=== PATIENT | male | born 1970 | race Caucasian/White ===

== ENCOUNTER 2018-08-24 13:21 | Inpatient (IN) | payer BC ==
[~2018-08-24] VITALS: Ht 165.1 cm; Wt 96.5 kg
[2018-08-24] VITALS (17 sets, daily range): BP systolic 96–134; BP diastolic 54–86; BMI 36.6
--- NOTE | ~2018-08-24 | HEMODYNAMI ---
PATIENT:VLADIMIR SUAREZ MEDICAL RECORD: [id number] : 70 LOCATION:[facility] ADMISSION DATE: 08/24/18 Generatedon:08/24/201814:34 Patient name: VLADIMIR SUAREZ Patient #: [id number] SSN: : 1970 Date of study: 08/24/2018 Page: Of Hemodynamic Procedure Report Patient Data Patient Demographics Procedure consent was obtained First Name: VLADIMIR Gender: Male Last Name: DANIELA : 1970 Middle Initial: G Age: 48 year(s) Patient #: [id number] Race: Unknown Additional ID: [id number] Contact details Address: [address] State: [place] City: [place] Zip code: [address] Past Medical History Allergies: No known allergies Admission Admission Data Admission Date: 08/24/2018 Admission Time: 13:21 Admit Source: Emergency department Procedure Procedure Types Cath Procedure Diagnostic Procedure LHC LHC w/Coronaries w/Grafts PCI Procedure AMI/SVG/CLERK SECRETARY PTCA or Stent AMI-BMS/LINA Initial Procedure Description Procedure Date Procedure Date: 08/24/2018 Procedure Start Time: 13:54 Procedure End Time: 14:29 Procedure Staff Name Function Cristi Vera MD Performing Physician Jakob Bautista RT Monitor Vishnu Novak RN Nurse Ember Rodney RT Scrub Sander Huynh RT Electronic Technologist Procedure Data Cath Procedure Fluoroscopy Diagnostic fluoroscopy Total fluoroscopy Time: time: 12.4 min 12.4 min Diagnostic fluoroscopy Total fluoroscopy dose: dose: 2003 mGy 2003 mGy Contrast Material Contrast Material Type Amount (ml) Isovue 300 144 Entry Location Entry Primary Successful Side Size Upsize Upsize Entry Closure Succes sful Closure Location (Fr) 1 (Fr) 2 (Fr) Remarks Device Remarks Femoral Right 6 Fr Exoseal artery Short Diagnostic catheters Device Type Used For End Catheter Placement MULTIPACK JL 4.0 5Fr Left Coronary catheter Angiography MULTIPACK 3DRC 5Fr Right Coronary catheter Angiography MULTIPACK Pigtail 5 Fr LV Angiography catheter Procedure Complications No complications Procedure Medications Medication Administration Route Dosage 0.9% NaCl I.V. ml/hr Oxygen etCO2 Nasal cannula 2 l/min Heparin Flush Bag added to field 2 bags (1000units/500ml NS) Lidocaine 2% added to field 20 Versed I.V. 1 mg Fentanyl I.V. 50 mcg Integrilin (Bolus I.V. 9 ml 2mg/ml) Integrilin (Bolus wasted 1 ml 2mg/ml) Integrilin Drip I.V. drip 15.7 ml/hr (75mg/100ml) Integrilin (Bolus I.C. 9 ml 2mg/ml) Plavix P.O. 600 mg Hemodynamics Rest Heart Rate: 92 (bpm) Pressure Samples Time Site Value (mmHg) Purpose Heart Use Rate(bpm) 14:22 LV 97/26,26 EDP 78 Gradients Valve Time Site Site Mean SEP/DFP Peak To Heart Use 1 2 (mmHg) (sec/min) Peak Rate (mmHg) (bpm) Aortic 14:23 LV AO 67 Snapshots Pre Cath Intra NCS Post Cath Vital Signs Time Heart Resp SPO2 etCO2 NIBP (mmHg) Rhythm Pain Status Sedation Rate (ipm) (%) (mmHg) Level (bpm) 13:47:49 83 17 96 32.2 128/81(98) NSR 3 (11) , 10(A) Tolerable 13:52:03 106 26 93 31.4 123/88(99) NSR 3 (11) , 10(A) Tolerable 13:56:27 80 22 92 34.4 114/64(82) NSR 0 (11) , No 9(A) pain 14:00:41 65 23 93 29.9 120/78(106) NSR 0 (11) , No 9(A) pain 14:04:57 95 21 95 35.9 127/83(95) NSR 0 (11) , No 9(A) pain 14:09:15 62 21 98 30.7 132/84(107) NSR 3 (11) , 10(A) Tolerable 14:13:33 63 22 99 35.2 96/78(86) NSR 4 (11) , 10(A) Distressing 14:17:05 65 25 96 26.9 96/78(86) NSR 4 (11) , 10(A) Distressing 14:21:23 64 22 98 29.2 114/76(89) NSR 4 (11) , 10(A) Distressing 14:25:39 74 19 97 104/68(84) NSR 4 (11) , 10(A) Distressing 14:29:49 68 25 96 11.2 113/76(84) NSR 4 (11) , 10(A) Distressing Medications Time Medication Route Dose Verified Delivered Reason Notes E ffectiveness by by 13:49:06 0.9% NaCl I.V. ml/hr Vishnu Vishnu Per Scarlet Novak physician RN RN 13:49:37 Oxygen etCO2 2 Vishnu Vishnu for low 02 Nasal l/min Scarlet Novak sats cannula RN RN 13:49:48 Heparin Flush added 2 Vishnu Vishnu used for Bag to bags Scarlet Novak procedure (1000units/500ml field RN RN NS) 13:50:00 Lidocaine 2% added 20ml Vishnu Vishnu for local to vial Scarlet Novak anesthetic field RN RN 13:53:43 Versed I.V. 1 mg Vishnu Vishnu for sedation Scarlet Novak RN RN 13:53:51 Fentanyl I.V. 50 Vishnu Vishnu for sedation mcg Scarlet Novak RN RN 13:57:15 Integrilin I.V. 9 ml Vishnu Vishnu for (Bolus 2mg/ml) Scarlet Novak antiplatelet RN RN therapy 13:57:23 Integrilin wasted 1ml Vishnu Vishnu to sharp's (Bolus 2mg/ml) Scarlet Novak RN RN 14:00:14 Integrilin Drip I.V. 15.7 Vishnu Vishnu for (75mg/100ml) drip ml/hr Scarlet Novak antiplatelet RN RN therapy 14:12:34 Integrilin I.C. 9 ml Vishnu Cristi for (Bolus 2mg/ml) Scarlet Vera antiplatelet BRET PATTERSON therapy 14:29:24 Plavix P.O. 600 Vishnu Laceyory for mg Scarlet Vera antiplatelet BRET PATTERSON therapy Procedure Log Time Note 13:34:47 Procedure type changed to Cath procedure, Diagnostic procedure, LHC, LHC w/Coronaries w/Grafts, PCI procedure, AMI/SVG/CLERK SECRETARY PTCA or Stent, AMI-BMS/LINA Initial 13:34:52 Admit Source: Emergency department 13:35:23 Diagnostic Cath status Emergency 13:35:26 Sander Lino RT(R) (CV) sent for patient. Start room use. 13:35:27 Time tracking: Regular hours (M-F 7:00 - 5:00) 13:35:32 Plan of Care:Hemodynamics will remain stable., Cardiac rhythm will remain stable., Comfort level will be maintained., Respiratory function will remain adequate., Patient/ family verbilizes understanding of procedure., Procedure tolerated without complication., Recovers from procedure without complications.. 13:43:50 Patient received from ED to CCL 2 Alert and oriented. Tansferred to table in Supine position. 13:43:51 Warm blankets applied, and rosario hugger turned on for patient comfort. 13:43:52 Correct patient and procedure confirmed by team. 13:43:54 Signed procedure consent form obtained from patient. 13:43:55 ECG and BP/O2 sat monitors applied to patient. 13:43:57 Pre-procedure instructions explained to patient. 13:43:57 Pre-op teaching completed and patient verbalized understanding. 13:44:06 Family unavailable. 13:44:37 Patient allergic to No known allergies 13:44:39 Is patient on blood thinner?No 13:44:41 Patient diabetic? Yes. 13:44:44 Previous problem with sedation/anesthesia? No ? 13:44:45 Snore? Yes 13:44:47 Sleep apnea? Yes 13:44:48 Deviated septum? No 13:44:49 Opens mouth fully? Yes 13:44:49 Sticks out tongue? Yes 13:44:51 Airway obstruction? No ? 13:45:01 If diabetic: On Metformin? Yes 13:45:03 If on Metformin: Last Dose? 08/23/2018 13:45:19 WAS TOLD TO HOLD METFORMIN 2 DAYS 13:45:25 Dentures? No ? 13:45:39 IV patent on arrival in right hand with 0.9% NaCl at [facility] 13:45:50 Right groin area was prepped with chlora-prep and draped in sterile fashion 13:45:51 Alarms reviewed by R. N. 13:45:51 Sharps counted by scrub and verified by R.N. 13:45:58 Use device set Femoral Dx 13:46:00 ACIST Syringe (46507) opened to sterile field. 13:46:01 Bag Decanter (2001S) opened to sterile field. 13:46:01 ACIST Hand Control (86694) opened to sterile field. 13:46:02 ACIST Manifold (41110) opened to sterile field. 13:46:02 Tegaderm 4 x 4 (1626W) opened to sterile field. 13:46:04 Medline Cath Pack ([id number]) opened to sterile field. 13:46:04 DIAGNOSTIC WIRE .035 260cm J wire (124763) opened to sterile field. 13:46:06 DIAGNOSTIC Multipack 5Fr catheter set (EL1053) opened to sterile field. 13:46:23 SHEATH 6FR [place] (HPP349) opened to sterile field. 13:46:24 WHISPER 300cm guide wire ([id number]) opened to sterile field. 13:46:28 INFLATOR Merit BasixCompak (EL9335) opened to sterile field. 13:46:43 Vital chart was started 13:46:45 Baseline sample Acquired. 13:46:48 Rhythm: sinus rhythm 13:46:49 Full Disclosure recording started 13:46:53 H&P Date Dictated: 08/24/2018 ER History on chart.. 13:49:06 0.9% NaCl ml/hr I.V. was administered by Vishnu Novak RN; Per physician; 13:49:37 Oxygen 2 l/min etCO2 Nasal cannula was administered by Vishnu Novak RN; for low 02 sats; 13:49:48 Heparin Flush Bag (1000units/500ml NS) 2 bags added to field was administered by Vishnu Novak RN; used for procedure; 13:50:00 Lidocaine 2% 20ml vial added to field was administered by Vishnu Novak RN; for local anesthetic; 13:51:56 Zero performed for pressure channel P1 13:53:01 Pre procedure: right dorsailis pedis pulse 2+ Normal; easily identifiable; not easily obliterated 13:53:06 Patient pain scale 0/10 ?. 13:53:08 Patient pain scale 3/10 CP. 13:53:12 Physician arrived 13:53:13 --------ALL STOP TIME OUT------ 13:53:13 Final Timeout: patient, procedure, and site verified with staff and physician. All members of the team are in agreement. 13:53:15 Right groin site verified by team. 13:53:20 Maximum allowable Isovue 300 dose 300ml. Physician notified. (300ml for normal creatinines. For patients with creatinine of 1.7 or higher multiply weight(kg) x 5 divided by creatinine.) 13:53:25 Fire Safety Assessment: A--An alcohol-based skin anteseptic being used preoperatively., C--Open oxygen or nitrous oxide is being used., D--An ESU, laser, or fiber-optic light is being used. 13:53:28 Physical assessment completed. ASA score P 2 - A patient with mild systemic disease as per Cristi Vera MD. 13:53:32 Sedation plan: IV Moderate Sedation Medication:Versed, Fentanyl 13:53:43 Versed 1 mg I.V. was administered by Vishnu Novak RN; for sedation; 13:53:51 Fentanyl 50 mcg I.V. was administered by Vishnu Novak RN; for sedation; 13:54:28 Procedure started. 13:54:36 Local anesthetic to right femoral artery with Lidocaine 2% by Cristi Vera MD.INITIAL ACCESS ONLY 13:54:42 A 6 Fr Short sheath was inserted into the Right Femoral artery 13:54:56 GUIDE 6FR XBLAD 3.5 catheter ([id number]) opened to sterile field. 13:55:44 Zero performed for pressure channel P1 13:56:48 A MULTIPACK JL 4.0 5Fr catheter was advanced over the wire and used for Left Coronary Angiography. 13:56:54 LCA angiography performed. 13:56:55 Catheter removed. 13:57:02 6 Fr XBLAD 3.5 guide catheter was inserted over the wire 13:57:15 Integrilin (Bolus 2mg/ml) 9 ml I.V. was administered by Vishnu Novak RN; for antiplatelet therapy; 13:57:19 WHISPER wire advanced. 13:57:23 Integrilin (Bolus 2mg/ml) 1ml wasted was administered by Vishnu Novak RN; to sharp's; 14:00:14 Integrilin Drip (75mg/100ml) 15.7 ml/hr I.V. drip was administered by Vishnu Novak RN; for antiplatelet therapy; 14:02:04 BMW 300cm Girdler 2 J wire ([id number]) opened to sterile field. 14:02:20 Wire removed. 14:02:30 BMW 2 wire advanced. 14:05:26 Inflate balloon Inflation number: 1 A EMERGE OTW 2.5 x 15 balloon ([id number]) was prepped and advanced across the Mid LAD, then inflated to 7 ULISES for 0:28 (min:sec). 14:05:42 Inflation number: 2 The EMERGE OTW 2.5 x 15 balloon ([id number]) was reinflated across the Mid LAD, to 7 ULISES for 0:12 (min:sec). 14:06:36 Inflation number: 3 The EMERGE OTW 2.5 x 15 balloon ([id number]) was reinflated across the Mid LAD, to 7 ULISES for 0:16 (min:sec). 14:06:43 Inflation number: 4 The EMERGE OTW 2.5 x 15 balloon ([id number]) was reinflated across the Mid LAD, to 4 ULISES for 0:05 (min:sec). 14:07:31 Inflation number: 5 The EMERGE OTW 2.5 x 15 balloon ([id number]) was reinflated across the Mid LAD, to 7 ULISES for 0:12 (min:sec). 14:08:17 Balloon removed over the wire. 14:11:19 Place stent Inflation Number: 6 A COBRA RX 3.5 X 30 Stent was prepped and advanced across the Mid LAD. The stent was deployed at 14 ULISES for 0:25 (min:sec). 14:11:41 Stent catheter was removed intact over wire. 14:12:34 Integrilin (Bolus 2mg/ml) 9 ml I.C. was administered by rCisti Vera MD; for antiplatelet therapy; 14:16:03 Place stent Inflation Number: 7 A INTEGRITY RX 3.5 x 30 stent ([id number]) was prepped and advanced across the Mid LAD. The stent was deployed at 14 ULISES for 0:38 (min:sec). 14:17:20 Inflation number: 8 The stent balloon was then re-inflated across the Mid LAD to 4 ULISES for 0:12 (min:sec). 14:17:43 Inflation number: 9 The stent balloon was then re-inflated across the Mid LAD to 4 ULISES for 0:16 (min:sec). 14:18:10 Inflation number: 10 The stent balloon was then re-inflated across the Mid LAD to 6 ULISES for 0:09 (min:sec). 14:19:28 Stent catheter was removed intact over wire. 14:19:29 Wire removed. 14:19:30 Guide catheter removed. 14:19:37 A MULTIPACK 3DRC 5Fr catheter was advanced over the wire and used for Right Coronary Angiography. 14:19:43 RCA angiography performed. 14:21:19 Catheter removed. 14:22:18 A MULTIPACK Pigtail 5 Fr catheter was advanced over the wire and used for LV Angiography. 14:22:24 LV angiography performed. 14:22:28 LV gram done using PATIÑO 14:22:48 EF : 45 % 14:22:54 Catheter removed. 14:24:21 Sheath removed intact; hemostasis achieved with Exoseal to the Right Femoral artery. 14:24:23 Procedure ended.(Physican Out) 14:28:36 Fluoroscopy time 12.40 minutes. 14::44 Fluoroscopy dose: 2003 mGy 14::44 Flurop Dose total: 2003 14:29:03 Contrast amount:Isovue 300 144ml. 14:29:06 Sharps counted by scrub and verified by R.N. 14:29:07 Insertion/operative site no bleeding no hematoma. 14:29:09 Post-op/insertion site Right Femoral artery dressed using a 4 x 4 and Tegaderm. 14:29:13 Post right femoral artery:stable 14:29:14 Post Procedure Pulses reassessed and unchanged 14:29:17 Post procedure: right dorsailis pedis pulse 2+ Normal; easily identifiable; not easily obliterated. 14:29:20 Post procedure rhythm: sinus rhythm 14:29:22 Post procedure instruction explained to patient.Patient verbalizes understanding. 14:29:23 Procedure and supply charges have been captured, reviewed, submitted and are correct. 14:29:24 Plavix 600 mg P.O. was administered by Cristi Vera MD; for antiplatelet therapy; 14:29:40 EXOSEAL 6Fr (EX600) opened to sterile field. 14:29:47 Procedure Complication : No complications 14:29:50 Vital chart was stopped 14::50 See physician's report for complete and final results. 14:29:54 Report given to CVICU. 14:29:57 Patient transfered to CVICU with Bed. 14:29:59 Procedure ended. 14:29:59 Full Disclosure recording stopped 14:30:12 ACC-PCI Only Patient was given prescriptions, or instructed by Cristi Vera MD to start/continue the following medications upon discharge: Plavix 14:30:14 End room use (Document Last) Intervention Summary Intervention Notes Time ActionType Lesion and Equipment Action# Pressure Duration Attributes Used 14:05:26 Inflate Mid LAD EMERGE OTW 1 7 00:28 balloon 2.5 x 15 balloon ([id number]) 14:05:42 Reinflate Mid LAD EMERGE OTW 2 7 00:13 balloon 2.5 x 15 balloon ([id number]) 14:06:36 Reinflate Mid LAD EMERGE OTW 3 7 00:16 balloon 2.5 x 15 balloon ([id number]) 14:06:43 Reinflate Mid LAD EMERGE OTW 4 4 00:06 balloon 2.5 x 15 balloon ([id number]) 14:07:31 Reinflate Mid LAD EMERGE OTW 5 7 00:12 balloon 2.5 x 15 balloon ([id number]) 14:11:19 Place stent Mid LAD COBRA RX 3.5 6 14 00:25 X 30 Stent 14:16:03 Place stent Mid LAD INTEGRITY RX 7 14 00:38 3.5 x 30 stent ([id number]) 14:17:20 Reinflate Mid LAD INTEGRITY RX 8 4 00:12 stent 3.5 x 30 balloon stent ([id number]) 14:17:43 Reinflate Mid LAD INTEGRITY RX 9 4 00:16 stent 3.5 x 30 balloon stent ([id number]) 14:18:10 Reinflate Mid LAD INTEGRITY RX 10 6 00:09 stent 3.5 x 30 balloon stent ([id number]) Device Usage Item Name Manufacture Quantity Catalog Number [facility] [employer] Minimal Lot# / Charge Number Stock Stock Serial# Code ACIST Syringe Acist 1 05945 462938 023982 777138 20 (62722) Medical Systems Inc Bag Decanter Microtek 1 715713 75663 863334 5 () Medical Inc. ACIST Hand Acist 1 01192 845089 796084 921643 5 Control Medical (39655) [employer]ets [employer] Inc ACIST Manifold Acist 1 20990 660408 501486 904737 5 (39685) Medical Systems Inc Tegaderm 4 x 4 3M 1 1626W 234689 717305 585696 5 (1626W) Medline Cath Medline 1 [id number] 043062 74168 625304 5 Pack ([id number]) DIAGNOSTIC [place] 1 096896 023110 731394 871300 30 WIRE .035 260cm J wire (271524) DIAGNOSTIC Cardinal 1 ZI1894 151141 01103 174362 30 Multipack 5Fr Health catheter set (IQ8004) SHEATH 6FR Terumo 1 XIC853 986141 557758 628993 40 [place] (VKW595) WHISPER 300cm Sands 1 [id number] 477546 479908 882277 5 guide wire Vascular (3966018IQ) INFLATOR Merit Merit 1 ZU3368 631922 827972 914845 15 BlackSquare Medical (BS6609) GUIDE 6FR Cardinal 1 61359161 508390 132875 957013 10 XBLAD 3.5 Health catheter ([id number]) MULTIPACK JL Cardinal 1 089558 5 4.0 5Fr Health catheter BMW 300cm Sands 1 [id number] 129267 321772 991395 5 Girdler 2 J Vascular wire ([id number]) EMERGE OTW 2.5 [place] 1 [id number] 000752 113751 357841 5 [id number] x 15 balloon Scientific ([id number]) COBRA RX 3.5 X Celonova 1 675-64-92738 796713 788849901 222070 7 5 [id number] 30 stent Biosciences ([id number]) INTEGRITY RX Medtronic 1 [id number] 280838 057282 586356 5 [id number] 3.5 x 30 stent ([id number]) MULTIPACK 3DRC Cardinal 1 418582 5 5Fr catheter Health MULTIPACK Cardinal 1 267756 5 Pigtail 5 Fr Health catheter EXOSEAL 6Fr Cardinal 1 EX600 044757 751004 856850 10 (EX600) Health Signature Audit [place] Stage Time Signature Unsigned Intra-Procedure 08/24/2018 Jakob JETT(R) 2:34:13 PM Signatures Monitor : Jakob Bautista RT Signature : Date : Time : [address] [place] [address]
[2018-08-24 13:39] LABS: HEMATOCRIT 46.5 % (42.0-54.0); HEMOGLOBIN 17.1 g/dL (13.5-17.5); MCH 31.2 pg (26.0-34.0); MCHC 36.8 g/dL (31.0-37.0); MCV 84.9 fL (80.0-100.0); MEAN PLATELET VOLUME 10.1 fL (7.4-10.4); PLATELET COUNT 276 10x3/uL (130-400); RBC 5.48 10x6/uL (4.20-6.10); RDW 13.1 % (11.5-14.5); WBC 21.6 10x3/uL (4.8-10.8)
[2018-08-24 13:51] LABS: ALBUMIN 3.7 g/dL (3.4-5.0); ALKALINE PHOSPHATASE 100 U/L (46-116); ALT (SGPT) 48 U/L (10-68); BILIRUBIN - TOTAL 1.15 mg/dL (0.2-1.3); CALC OSMOLALITY 287 mosm/kg (275-300); CALCIUM 8.7 mg/dL (8.5-10.1); CARBON DIOXIDE 24.1 mmol/L (21.0-32.0); CHLORIDE - SERUM 103 mmol/L (98-107); GLUCOSE 279 mg/dL (74-106); POTASSIUM - SERUM 4.5 mmol/L (3.5-5.1); PROTEIN - SERUM 6.8 g/dL (6.4-8.2); SODIUM 139 mmol/L (136-145); UREA NITROGEN 13 mg/dL (7-18); eGFR NON AFRICAN AMERICAN 85 mL/min (90-120)
--- NOTE | 2018-08-24 13:51 | NUR ---
Dr. 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
[2018-08-24 14:07] LABS: CKMB 8.6 U/L (0.0-3.6); CREATINE KINASE 177 UL (21-232); MAGNESIUM - SERUM 1.9 mg/dL (1.8-2.4)
[2018-08-24 14:09] LABS: TROPONIN-I 1.136 ng/mL (0.000-0.060)
[2018-08-24 14:19] LABS: INR 1.04 (0.85-1.17); PROTIME 13.1 SECONDS (11.6-15.0)
[2018-08-24 15:15] LABS: LYMPHOCYTES 19 % (15-50); MONOCYTES 4 % (2-11); NEUTROPHILS 77 % (40-80)
[2018-08-24 15:16] LABS: PLATELET ESTIMATE NORMAL
--- NOTE | 2018-08-24 16:41 | NUR ---
PT BLOOD GLUCOSE CHECKED. IS VERY SLEEPY AND HAS TO BE REMINDED CONSTANTLY TO KEEP HIS LEG STRAIGHT. CONTINUES TO FLOP AROUND IN BED. SITE REMAINS SOFT WITH NO HEMATOMA DETECTED. DRESSING C,D,I.
--- NOTE | 2018-08-24 17:27 | NUR ---
CO-WORKER ARUNA NIELSON CAME BY TO VIST PATIENT. BROUGHT PATIENT'S WALLET. HAD LARGE AMOUNT OF MAYBERRY IN THE WALLET. ARUNA REMOVED $800 IN MAYBERRY WITH PATIENT CONSENT TO KEEP ON HIS PERSON. THE REMAINING MAYBERRY AND CARDS WILL BE ITEMIZED AND SENT TO THE [facility] UNTIL DISCHARGE.
--- NOTE | 2018-08-24 17:58 | NUR ---
FRIEND: ARUNA NIELSON [phone], ROVING SIZER: ZULEYMA DOSS [phone] MOM: MUNA SUAREZ [phone]
[2018-08-24] MEDS ORDERED: GLUCOPHAGE1000 MG PO (18:16)
[2018-08-24] MEDS ORDERED: GLIPIZIDE10 MG PO (18:17)
--- NOTE | 2018-08-24 18:18 | NUR ---
PT USES [facility] IN [place]. PHARMACY NOT IN [facility] LIST. MEDICATION LIST UPDATED FOR PT HOME MEDICATIONS.
--- NOTE | 2018-08-24 19:30 | NUR ---
REPORT REC'D AND CARE ASSUMED, REC'D PT RESTING QUIETLY IN BED, AWAKE, ALERT, AND ORIENTED, RIGHT A/C PIV WITH NS INFUSING AND INTERGRILIN @ 15.7CC/HR INFUSING, RIGHT GROIN SITE POST CATH CDI, NO BLEEDING OR HEMATOMA, PT DENIES PAIN, BED IN LOW POSITION, CALL LIGHT IN REACH, VISIBLE TO NURSES STATION.
--- NOTE | 2018-08-24 19:30 | NUR ---
REPORT REC'D AND CARE ASSUMED, REC'D PT AWAKE, ALERT, AND ORIENTED X 4 ON ROOM AIR, RIGHT RADIAL JIMMY WITH FLEXION BOARD IN USE, LEVELED AND ZEROED WITH RETURN OF APPROPRIATE WAVEFORM, LEFT UPPER LATERAL CHEST INCISION DRSG CDI, LEFT MIDDLE LATERAL DRG CDI TO CT'S X 2 TO 20CM H2O SUCTION, SM AIR LEAK NOTED MD AWARE, LEFT POSTERIOR BACK DRSG CDI, CRITICORE ESPINOZA PATENT DRAINING CLEAR YELLOW URINE, EPIDURAL TAPED SECURELY TO BACK INFUSING @ 7CC/HR WITH 4CC Q15MIN BOLUS AVAILABLE FOR BREAK THROUGH PAIN, BILAT TEDS AND SCDS, PPP, AIR OVERLAY MATTRESS IN USE, PT DENIES PAIN, SR UP X 2, CALL LIGHT IN REACH, VISIBL TO NURSES STATION.
--- NOTE | 2018-08-24 19:44 | NUR ---
CALLED DR GUZMÁN. PT DID NOT HAVE ORDERS FOR PLAVIX FOR TOMORROW. NEW ORDERS RECEIVED.
--- NOTE | 2018-08-24 20:00 | NUR ---
PT REQUESTING SOMETHING TO EAT, CHICKEN BROTH AND JELLO PROVIDED, PT DENIES NAUSEA.
--- NOTE | 2018-08-24 20:00 | NUR ---
ER STAFF UP TO VERIFY AND LOG PT BELONGINGS TO GO INTO [facility]. PT HAS DECIDED TO KEEP HIS CELL PHONE AT HIS BEDSIDE.
--- NOTE | 2018-08-24 20:30 | NUR ---
NO VISITORS IN AT THIS TIME.
--- NOTE | 2018-08-24 21:00 | NUR ---
FSBS 225, PHARMACY NOTIFIED OF NEED FOR HUMULIN REGULAR INSULIN, RIGHT A/C PIV SALINE LOCKED AND NS @ 125CC/HR PLACED TO LEFT HAND, PT FORGETTING TO KEEP RIGHT ARM STRAIGHT.
--- NOTE | 2018-08-24 21:15 | NUR ---
MOTHER AND UNCLE AT BS, UPDATE PROVIDED AND QUESTIONS ANSWERED, PT SITTING UP IN BED VISITING WITH FAMILY, PT DENIES NEEDS.
--- NOTE | 2018-08-24 22:30 | NUR ---
PT PULLING O2 SAT OFF WHILE SLEEPING, O2 SAT DECREASES 86%, O2 REAPPLIED AND IMPORTANCE OF KEEPING IT ON DISCUSSED WITH PATIENT, PT STATES "OKAY", WILL MONITOR CLOSELY FOR CHANGES.
--- NOTE | 2018-08-24 23:15 | NUR ---
REASSESSMENT COMPLETED, RT AT BS FOR BREATHING TX, ID BAND REPLACED, PT RATING PAIN "2" ON 0-10 PAIN SCALE, COLA PROVIDED ON REQUEST, PT PULLING 500-750 ON IS, PT DENIES FURTHER NEEDS, WILL CONTINUE TO MONITOR FOR CHANGES.
--- NOTE | 2018-08-24 23:30 | NUR ---
REASSESSMENT COMPLETED, PT RESTLESS IN BED, REPOSITIONS FREQUENTLY, PULLING O2 AND PULSE OX OFF, O2 SAT DECREASES TO 85% WITH O2 OFF, EXPLAINED TO PATIENT WHY OXYGEN WAS IMPORTANT AT THIS TIME, PT NODS IN UNDERSTANDING, ASKED WHY PATIENT WAS SO RESTLESS, STATES " I JUST CAN'T GET COMFY", ASSISTED PT TO REPOSITION, BP STABLE, WILL MONITOR CLOSELY FOR CHANGES.
[2018-08-25] VITALS (24 sets, daily range): BP systolic 110–134; BP diastolic 44–90; Ht 165.1 cm; Wt 96.5 kg
--- NOTE | 2018-08-25 02:00 | NUR ---
PT STANDING AT SIDE OF BED VOIDING, TELEMETRY PADS, BP CUFF, AND OXYGEN REAPPLIED TO PT, PT CAUTIONED REGARDING GETTING UP WITHOUT ASSISTANCE, PT BACK TO BED WITH MONITOR CONNECTED, PT REMINDED TO KEEP MONITORING EQUIPMENT ON, VERBALIZES UNDERSTANDING, REMAINS VISIBLE TO NURSES STATION.
--- NOTE | 2018-08-25 03:16 | NUR ---
REASSESSMENT COMPLETED, PARTIAL LINEN CHANGE PROVIDED, PT REPOSITIONED SELF UP IN BED, OXYGEN REAPPLIED, PT CONTINUES TO PULL IT OFF, PT DENIES PAIN , RIGHT GROIN DRSG CDI, NO BLEEDING OR HEMATOMA NOTED, PT DENIES PAIN OR NEEDS
--- NOTE | 2018-08-25 05:00 | NUR ---
PT RESTING ON LEFT SIDE, EYES CLOSED, O2 SAT 95%, O2 REMAINS AT 6 LITERS VIA NC, WILL MONITOR CLOSELY FOR CHANGES.
--- NOTE | 2018-08-25 06:00 | NUR ---
LAB AT BS FOR AM LAB, PT SITTING UP IN BED TALKING ON CELL PHONE, SR UP X 2, CALL LIGHT IN REACH, VISIBLE TO NURSES STATION.
[2018-08-25 06:22] LABS: BASOPHILS 0.1 % (0-2); EOSINOPHILS 0.5 % (0-7); HEMATOCRIT 45.8 % (42.0-54.0); HEMOGLOBIN 16.2 g/dL (13.5-17.5); IMMATURE GRANULOCYTES 0.5 % (0-5); LYMPHOCYTES 20.9 % (15-50); MCH 30.6 pg (26.0-34.0); MCHC 35.4 g/dL (31.0-37.0); MCV 86.6 fL (80.0-100.0); MEAN PLATELET VOLUME 10.2 fL (7.4-10.4); MONOCYTES 8.2 % (2-11); NEUTROPHILS 69.8 % (40-80); PLATELET COUNT 255 10x3/uL (130-400); RBC 5.29 10x6/uL (4.20-6.10); RDW 13.4 % (11.5-14.5); WBC 21.7 10x3/uL (4.8-10.8)
[2018-08-25 06:30] LABS: ALBUMIN 3.3 g/dL (3.4-5.0); ALKALINE PHOSPHATASE 84 U/L (46-116); ALT (SGPT) 92 U/L (10-68); BILIRUBIN - TOTAL 1.48 mg/dL (0.2-1.3); CALC OSMOLALITY 278 mosm/kg (275-300); CALCIUM 8.2 mg/dL (8.5-10.1); CARBON DIOXIDE 22.4 mmol/L (21.0-32.0); CHLORIDE - SERUM 104 mmol/L (98-107); CREATININE - SERUM 0.8 mg/dL (0.6-1.3); GLUCOSE 182 mg/dL (74-106); PROTEIN - SERUM 6.3 g/dL (6.4-8.2); SODIUM 137 mmol/L (136-145); UREA NITROGEN 13 mg/dL (7-18); eGFR NON AFRICAN AMERICAN > 90 mL/min (90-120)
--- NOTE | 2018-08-25 17:33 | NUR ---
0730-SOB AND CONTINUED CHEST DISCOMFORT-NO CHG BATH AT THIS TIME-REASSESS PM SHIFT
--- NOTE | 2018-08-25 17:47 | NUR ---
1200-DR BORJA AT [facility]-SPOKE WITH PT REGARDING PLAN OF CARE-PT APPEARED TO COMPREHEND-R GROIN SOFT TO TOUCH-R AC IV D/C'D WITH TIP INTACT-L IV SALINE LOCED
--- NOTE | 2018-08-25 19:20 | NUR ---
REC'D PT STANDING AT BS, O2 OFF, O2 @ 5LITERS VIA HIGH FLOW CANNULA REAPPLIED, O2 SAT 96%, CM-ST @ 122, BP STABLE, PT STATES " I WAS UP USING THE BATHROOM", LEFT HAND PIV SALINE LOCKED, DRSG TO RIGHT GROIN CDI, NO BLEEDING OR HEMATOMA, PPP, DINNER TRAY REMOVED, PT CONSUMED APPROX. 85%, PT DENIES PAIN OR NEEDS, CALL LIGHT IN REACH.
--- NOTE | 2018-08-25 20:40 | NUR ---
FAMILY AT BS, UPDATE GIVEN AND QUESTIONS ANSWERED.
--- NOTE | 2018-08-25 21:15 | NUR ---
FSBS 199, 2 UNITS REGULAR INSULIN GIVEN, EVENING MEDS GIVEN, FAMILY REMAINS IN ROOM.
--- NOTE | 2018-08-25 23:15 | NUR ---
REASSESSMENT COMPLETED, PT SITTING UP IN BED WATCHING TV, PT DENIES PAIN OR OTHER NEEDS, VSS.
[2018-08-26] VITALS (11 sets, daily range): BP systolic 103–140; BP diastolic 38–100
--- NOTE | 2018-08-26 01:00 | NUR ---
NO CHANGES IN STATUS AT THIS TIME.
--- NOTE | 2018-08-26 02:30 | NUR ---
PT RESTING IN BED EYES CLOSED, O2 SAT 95% WILL ATTEMPT TO WEAN O2 TOLERATED.
--- NOTE | 2018-08-26 03:00 | NUR ---
REASSESSMENT COMPLETED, NO CHANGES FROM PREVIOUS ASSESSMENT, PT DENIES PAIN OR NEEDS, VSS, SR UP, BED IN LOW POSITION, CALL LIGHT IN REACH.
--- NOTE | 2018-08-26 05:15 | NUR ---
PT RESTING 0N RIGHT SIDE EYES CLOSED, O2 REMAINS @ 3LITERS VIA HIGH FLOW, O2 SAT 94%, URINAL EMPTIED OF 300CC DARK URINE, SR UP, CALL LIGHT IN REACH.
--- NOTE | 2018-08-26 08:21 | NUR ---
RECIEVED AWAKE AND ALERT-PT REMOVED ALL MONITORING DEVICES-REPLACED SAME -EXPLAINED NEED FOR SAME-REMOVED O2-AND STRESSED DEEPBREATHING TO IMPROVE OXYGENATION-PT STATED HASN'T SMOKED FOR 2 DAYS-
--- NOTE | 2018-08-26 10:41 | NUR ---
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
[2018-08-26] MEDS ORDERED: ALDACTONE25 MG PO (11:08)
[2018-08-26] MEDS ORDERED: LIPITOR20 MG PO (11:08)
[2018-08-26] MEDS ORDERED: PLAVIX75 MG PO (11:10)
[2018-08-26] MEDS ORDERED: METOPROLOL TART25 MG PO (11:11)
--- NOTE | 2018-08-26 13:18 | NUR ---
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
--- NOTE | 2018-08-26 14:49 | NUR ---
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
--- NOTE | 2018-08-26 15:00 | NUR ---
PT RECIEVED BELONGINGS-DISCHARGED VIA WHEELCHAIR WITH FAMILY-SHOWN WHERE TO REGISTER WITH RETURN PROCEDURE
--- NOTE | 2018-08-28 10:07 | OP ---
PATIENT NAME: VLADIMIR SUAREZ MEDICAL RECORD: [id number] :70 LOCATION:[facility]CV02 ADMISSION DATE:08/24/18 SURGEON: JUAN BORJA MD DATE OF OPERATION: 08/24/2018 PROCEDURE: Left heart catheterization, selective coronary angiography, right femoral artery approach. CATHETERS: A 5-Central African sheath, 5/4 left and right Rosa, 5/4 pig. The procedure was well tolerated. The patient was returned to the shetty. Sheath was removed. ExoSeal device was placed. FINDINGS: Left ventriculography in 30-degree PATIÑO view shows marked anterior from the mid anterior wall down to the anterior apex true apical region. EF is estimated at 25%. CORONARY ANATOMY: LEFT MAIN: Left main is free of disease. LAD: Occluded in its proximal portion. CIRCUMFLEX: Moderate-sized circumflex with one OM, has about 80% to 90% stenosis in mid portion. RIGHT CORONARY ARTERY: Dominant artery, gives rise to PDA, free of disease. IMPRESSION: Acute anterior myocardial infarction secondary to occlusion of LAD. PLAN: Intervention momentarily. DESCRIPTION OF PROCEDURE: The 5-Central African sheath was exchanged for a 6-Central African sheath. EBU guiding catheter provided good guide catheter support followed by 300-cm Whisper wire placed across the totally occluded LAD down this portion of the vessel. Pre-deployment balloon used was 2.5 x 15 mm [place]. Stents were placed in the following fashion; distally a 3.5 x 30 mm Cobra and proximally a 3.5 x 30 mm Integrity to cover the entire area plus the residual stenosis. Balloon was inflated to 14 atmospheres. Intracoronary Integrilin was given during the case as well. Final angiography shows excellent resolution of a 100% stenosis. HAMMAD flow improved from 0 to 2. Sheath was closed with ExoSeal device. Plavix was loaded in the lab. TRANSINT:[id number] Voice Confirmation ID: [id number] DOCUMENT ID: [id number] JUAN BORJA MD at 1007 CC: [id number] DICTATION DATE: 08/24/18 1440 DREDGE WORKER: 08/24/18 1611 DIS IN 08/26/18 [id number] [place] [address]
--- NOTE | 2018-08-28 10:07 | DS ---
PATIENT:VLADIMIR SUAREZ :70 MEDICAL RECORD: [id number] DISCHARGE SUMMARY ADMISSION DATE: 08/24/18 DISCHARGE DATE: 08/26/18 DATE OF ADMISSION: 08/24/2018 DATE OF DISCHARGE: 08/26/2018 PROBLEM LIST: 1. Anterior myocardial infarction. 2. Coronary artery disease. 3. Diabetes mellitus. 4. Hypertension. BRIEF HISTORY AND HOSPITAL COURSE: Transferred from [facility] with anterior myocardial infarction, underwent intervention to LAD, did well postoperatively. Plavix and beta-bea as well as diuretics were added to his medical regime. We will need a followup intervention to his circumflex in the near future. TRANSINT:[id number] Voice Confirmation ID: [id number] DOCUMENT ID: [id number] JUAN BORJA MD at 1007 CC: [id number] DICTATION DATE: 08/26/18926 SPORTS ATTORNEY: 08/27/18 0734 DIS IN 08/26/18 [address] [place] [address]
--- NOTE | 2018-08-28 10:07 | HP ---
PATIENT: VLADIMIR SUAREZ MEDICAL RECORD: [id number] ACCOUNT: [id number] LOCATION:[facility].CV02 : 70 ADMISSION DATE: 08/24/18 PCP: No PCP HISTORY AND PHYSICAL EXAMINATION HISTORY: A 48-year-old gentleman with history of diabetes mellitus and hypertension, who was originally seen in [place] for hypoglycemia. This was treated appropriately; however, began having chest pain. Found to have ST elevation anteriorly, was admitted. While here, continued with chest pain and ST elevation, consistent with anterior myocardial infarction. He is being brought to clinical lab assistant on urgent basis. PAST MEDICAL HISTORY: Includes; 1. History of hypertension. 2. Hyperlipidemia. 3. Diabetes mellitus. ALLERGIES: None known. PHYSICAL EXAMINATION: GENERAL: Uncomfortable-appearing gentleman, in no acute distress. VITAL SIGNS: Pulse is 70 and regular. Blood pressure 90/72. HEENT: Normocephalic and atraumatic. NECK: No JVD or bruit. HEART: Regular. S4 gallop. LUNGS: Fair air excursion. ABDOMEN: Soft and nontender. EXTREMITIES: Pulses 2+. No edema. PLAN: Angiography and intervention based on results. TRANSINT:[id number] Voice Confirmation ID: [id number] DOCUMENT ID: [id number] JUAN BORJA MD at 1007 CC: [id number] DICTATION DATE: 08/24/18 1439 SENIOR STRATEGY MANAGER: 08/24/18 1534 DIS IN 08/26/18 [id number] [place] [address]
== END 2018-08-26 15:02 | disposition home or self-care (01) | DRG 249 ==
LOC: D.ER 13:21 → D.CVICU 14:34 → D.ER 14:35 → D.CVICU 15:53 → D.ER 15:53 → D.CVICU 08-26 15:02
PROVIDERS: Family Medicine; Internal Medicine Interventional Cardiology; ADMIT Family Medicine; ATTEND Family Medicine
PROC: B2151ZZ Fluoroscopy of Left Heart using Low Osmolar Contrast (ICD-10-PCS; 2018-08-24)
PROC: 4A023N7 Measurement of Cardiac Sampling and Pressure, Left Heart, Percutaneous Approach (ICD-10-PCS; 2018-08-24)
PROC: 02713EZ Dilation of Coronary Artery, Two Arteries with Two Intraluminal Devices, Percutaneous Approach (ICD-10-PCS; principal; 2018-08-24 13:35)
PROC: B2111ZZ Fluoroscopy of Multiple Coronary Arteries using Low Osmolar Contrast (ICD-10-PCS; 2018-08-24 13:35)
DX: I21.09 ST elevation (STEMI) myocardial infarction involving other coronary artery of anterior wall (principal); E11.9 Type 2 diabetes mellitus without complications; E78.5 Hyperlipidemia, unspecified; I25.10 Atherosclerotic heart disease of native coronary artery without angina pectoris; I10 Essential (primary) hypertension; E11.65 Type 2 diabetes mellitus with hyperglycemia

== ENCOUNTER 2018-09-12 10:17 | Outpatient (CLI) | payer BC | END 2018-09-12 17:40 | disposition home or self-care (01) | LOC: D.CATH 10:17 | DX: I25.10 Atherosclerotic heart disease of native coronary artery without angina pectoris (principal); I10 Essential (primary) hypertension; E11.9 Type 2 diabetes mellitus without complications; E78.5 Hyperlipidemia, unspecified ==